=== PATIENT | female | born 1965 | race American Indian/Alaskan Native ===

== ENCOUNTER 2018-02-25 10:03 | Day surgery (SDC) | payer MEDICARE ==
[2018-02-25] MEDS ORDERED: NACL 0.9% 1000 ML 1,000 ML IV SCH (11:00)
[2018-02-25] MEDS ORDERED: DIPRIVAN 10 MG/ML IV ONE ×2 (13:47)
--- NOTE | 2018-02-25 13:47 | Anesthesia Consultation ---
Anesthesia Consult and Med Hx Date of service: 02/25/18 - Airway Anesthetic Teeth Evaluation: Good (missing back ) ROM Head & Neck: Adequate Mental/Hyoid Distance: Adequate Mallampati Class: Class II Intubation Access Assessment: Probably Good - Pulmonary Exam CTA: Yes - Cardiac Exam Cardiac Exam: RRR - Pre-Operative Health Status ASA Pre-Surgery Classification: ASA3 Proposed Anesthetic Plan: MAC - Cardiovascular System Hx Hypertension: Yes - Endocrine Hx Renal Disease: Yes Hx End Stage Renal Disease: Yes (Dialysis )
--- NOTE | 2018-02-25 13:47 | Anesthesia Day of Surgery ---
Anesthesia Day of Surgery - Day of Surgery Patient Examined: Yes Patient H&P Reviewed: Yes Patient is NPO: Yes
[2018-02-25] MEDS ORDERED: WATER FOR IRRIG STERILE IR ONE (14:14)
[2018-02-25] MEDS ORDERED: WATER FOR IRRIG STERILE ONE (14:15)
[2018-02-25] MEDS ORDERED: INFANTS' GAS RELIEF PO ONE ×2 (14:26→14:30)
--- NOTE | 2018-02-25 15:06 | Operative Report ---
Operative Report Operative Report: Date of procedure: 02/25/2018 Procedure: Colonoscopy with submucosal injection, snare polypectomy, multiple cold biopsies of colon ulcer, control of bleeding colon ulcer. Attending physician: Víctor Goodman MD Organic Extractions Technician: Víctor Goodman MD Indication: Patient is a 63-year-old female who presents for screening colonoscopy. Patient also is undergoing evaluation prior to a planned kidney transplant because of history of chronic kidney disease. This colonoscopy serves to evaluate patient so that treatment may be directed based on the findings. Consent: Informed consent was obtained after advising the patient and family regarding nature of this procedure, its indications, potential benefits as well as possible complications including but not limited to bleeding perforation and adverse reaction to medication, infection as well as other cardiopulmonary complications. An informed written and verbal consent was then obtained after due opportunity was provided for questions and answers. Monitoring: Patient was monitored continuously with pulse oximetry and electrocardiographic recordings as well as blood pressure recordings. Vital signs remained stable throughout this procedure with no untoward events. Preoperative assessment: Patient was assessed immediately prior to this procedure for capacity to tolerate monitored anesthesia care and moderate sedation as well as general anesthesia. Patient's ASA classification is 2, Mallampati class is 2, Hyomental distance is 3. Instrument: Guerillappsn video colonoscope Medications: Propofol given intravenously in divided doses. For details please refer to anesthesia records. Description of procedure: Patient was placed in the left lateral decubitus position after achieving sedation, a digital rectal examination was performed following which the colonoscope was introduced into the anal verge and advanced to the cecum which was identified by the cecal valve, the appendiceal orifice, as well as by the cecal strap and direct transillumination. The colonoscope was subsequently withdrawn with careful inspection of all mucosal surfaces. Patient tolerated this procedure well and was subsequently taken to the recovery room. The following findings were noted. Findings: Patient had a flat 1-1.5 cm transverse colon polyp which was elevated with submucosal injection of saline and removed by snare electrocautery and retrieved. There were a few scattered diminutive diverticula in the sigmoid colon and also in the ascending colon. In the cecum, patient had focal area of ulceration with surrounding mucosal changes indicating focal colitis. There was profuse bleeding from this area. Several biopsies however were obtained from around the surrounding tissue changes. Control of bleeding was achieved with direct Hemoclip application over the bleeding site. The site was then irrigated and hemostasis was achieved. 2 hemoclips were applied. The rest of the colon to the cecum was normal. On the retroflex view at the anal verge, patient had internal hemorrhoids. Impression: Transverse colon polyp status post submucosal injection and snare polypectomy. Bleeding cecal ulcer with surrounding colitis status post biopsies and control of bleeding. Diverticula disease of the colon. Internal hemorrhoids. Plan: Follow pathology report. Observe patient clinically for any further bleeding. Direct additional treatment based on the pathology report. Patient has been taking non- steroidals which may be responsible for the cecal ulcer with non steroidal colopathy. Will however await pathology report to further clarify this. High-fiber diet. Pending pathology report, will repeat colonoscopy in 5 years for colorectal cancer screening..
[2018-02-25 15:09] VITALS: BP 106/68
--- NOTE | 2018-02-25 15:10 | Operative Report ---
Operative Report Operative Report: Date: 02/25/2018 Operative Report: Date of procedure: 02/25/2018 Procedure: Esophagogastroduodenoscopy with multiple mucosal biopsies. Attending physician: Víctor Goodman MD Senior Gis Analyst: Víctor Goodman MD Indication: Patient is a 52 -year-old female who presented with a history of recurrent mid epigastric pain. Patient is also undergoing evaluation for possible kidney transplant because of history of chronic kidney disease. An upper endoscopy is done to assess patient, so that treatment may be directed based on the findings. Consent: Informed consent was obtained after advising the patient and family regarding nature of this procedure, its indications, potential benefits as well as possible complications including but not limited to bleeding perforation and adverse reaction to medication, infection as well as other cardiopulmonary complications. An informed written and verbal consent was then obtained after due opportunity was provided for questions and answers. Monitoring: Patient was monitored continuously with pulse oximetry and electrocardiographic recordings as well as blood pressure recordings. Vital signs remained stable throughout this procedure with no untoward events. Preoperative assessment: Patient was assessed immediately prior to this procedure for capacity to tolerate monitored anesthesia care and moderate sedation as well as general anesthesia. Patient's ASA classification is 3, Mallampati class is 2, Hyomental distance is 3. Instrument: clinovon video endoscope Medications: Propofol given intravenously in divided doses. For details please refer to anesthesia records. Description of procedure: Patient was placed in the left lateral decubitus position after achieving sedation, the endoscope was introduced into the esophagus under direct vision. It was then advanced beyond the esophagus into the stomach and then beyond the stomach into the duodenum and to the second portion of the duodenum. It was subsequently withdrawn with careful inspection of all mucosal surfaces with the following findings. Findings: Patient has an irregular Z line at 38 cm. There was a small diminutive sliding hiatal hernia seen on entry into the stomach. There was erythema seen in the gastric antrum. Biopsies of the antrum were obtained for histopathology. The duodenum was normal to second portion. Impression: Irregular Z line. Gastric antral erythema Hiatal hernia. Plan: Follow pathology report. Direct additional treatment based on the pathology report. Patient will be observed clinically. Additional recommendations will be made follow-up.
== END 2018-02-25 10:04 | disposition home or self-care (01) ==
LOC: GIO 10:03
PROVIDERS: ATTEND Internal Medicine Gastroenterology
DX: Z12.11 Encounter for screening for malignant neoplasm of colon (principal); D12.3 Benign neoplasm of transverse colon; K57.30 Diverticulosis of large intestine without perforation or abscess without bleeding; K64.8 Other hemorrhoids; K44.9 Diaphragmatic hernia without obstruction or gangrene; K22.8 Other specified diseases of esophagus; I12.0 Hypertensive chronic kidney disease with stage 5 chronic kidney disease or end stage renal disease; N18.6 End stage renal disease
CPT/HCPCS: 43239; 45380; 45390; 88305; 88342; J2704; J7030